=== PATIENT | male | born 1970 | race Caucasian/White ===

== ENCOUNTER 2022-09-05 20:48 | Emergency (ER) | payer MEDICAID, SELFPAY ==
[2022-09-05 20:50] VITALS: BP 160/112; PULSE 104; RESP 19; TEMP 36.9; O2SAT 95; BMI 28.0
--- NOTE | 2022-09-05 21:16 | US_ITS ---
EXAM: US DUPLEX RIGHT LOWER EXTREMITY VEINS CLINICAL INDICATION: undefined -- CALF FOR POSSIBLE DVT TECHNIQUE: Real-time duplex ultrasound scan of the right lower extremity veins integrating B-mode two-dimensional vascular structure, Doppler spectral analysis, color flow Doppler imaging and compression. This report was created using [employer] report generation technology. COMPARISON: None. FINDINGS: DEEP VEINS: No DVT in the visualized common femoral, femoral, proximal deep femoral, popliteal or calf veins. The veins demonstrate normal color flow , with normal phasic flow and/or augmentation response. Intravascular stent is present within the right common femoral vein, extending to the proximal superficial vein, and this portion of the venous system was not compressible due to the indwelling stent, which is patent. The remaining deep veins are normally compressible. SUPERFICIAL VEINS: Unremarkable. No thrombus in the visualized great saphenous vein. SOFT TISSUES: No acute findings. No popliteal cyst. US/Venous Duplex Imag/Limited/Uni IMPRESSION: Negative for DVT. Electronically Signed: Tripp Hull MD at 22:16 EDT ,
[2022-09-05 21:26] LABS: Absolute Lymphocyte Count 1.52 X10^3/uL (0.83-4.51); Absolute Neutrophil Count 3.8 X10^3/uL (2.0-7.7); Basophil# 0.08 X10^3/uL; Basophil% 1.3 % (0-1); Eosinophil# 0.17 X10^3/uL; Eosinophils% 2.7 % (0-5); Hematocrit 43.4 % (40-54); Hemoglobin 14.6 g/dL (13.0-16.5); Lymphocyte # 1.52 X10^3/ul (0.83-4.51); Lymphocyte % 24.2 % (19-41); Mean Corp Hgb Conc 33.6 g/dL (32-36); Mean Corpuscular Hgb 30.5 pg (27.0-32.0); Mean Corpuscular Volume 90.8 fL (80-94); Mean Platelet Vol. 10.6 fl (6.2-12.0); Monocyte# 0.65 X10^3/uL; Monocyte% 10.3 % (0-10); NRBC Flagged by Analyzer 0 % (0-5); Neutrophil # 3.83 X10^3/uL (2.7-7.7); Neutrophil % 60.9 % (47-70); Platelet Count 172 K/mm3 (150-450); RBC Distribution Width CV 14.1 % (11.6-14.6); RBC Distribution Width SD 47.1 fl (35.1-43.9); Red Blood Count 4.78 M/mm3 (4.6-6.2); White Blood Count 6.3 K/mm3 (4.4-11.0)
[2022-09-05 21:42] LABS: Anion Gap 1 (5-15); BUN 12 mg/dL (7-18); BUN/Creat Ratio 9.7 RATIO (10-20); Calcium,Total 9.4 mg/dL (8.5-10.1); Chloride 109 mmol/L (98-107); Creatinine, Serum 1.24 mg/dL (0.70-1.30); EST Glomerular Filtration Rate 65 mL/min (>60); Est Glom Filt Rate - Afr Amer 78 mL/min (>60); Glucose 129 mg/dL (74-106); Potassium 3.5 mmol/L (3.5-5.1); Sodium Level 138 mmol/L (136-145)
--- NOTE | 2022-09-05 23:09 | ED.VIS.LOWEX ---
HPI History of Present Illness Chief Complaint: Lower Extremity Injury Informant: patient, spouse/S.O. and PCP Narrative Narrative: I directly discussed the case twice with the patient's physician, Dr. Claros. I also discussed with the patient and his . Patient has a history of DVT and venous stenting. He is on Plavix but no other anticoagulation. He has noticed over the last month his legs been more swollen. Today it seems to be a little bit sore. Plan was to have him come in at least get started on Eliquis if we cannot get a DVT. However, we were able to get a DVT as he was here early enough. Patient does not have chest pain or trouble breathing. He has had no fevers or chills. No wounds. PFSH PFS Medical History DVT (deep venous thrombosis) Herniated disc Home Medications Plavix 09/05/22 [History Last Taken Unknown] mirtazapine 45 mg tablet 45 mg PO DAILY 09/05/22 [History Last Taken Unknown] paroxetine HCl 20 mg tablet 20 mg PO DAILY 09/05/22 [History Last Taken Unknown] Allergy/AdvReac Type Severity Reaction Status Date / Time No Known Allergies Allergy Verified 09/05/22 20:52 Social History Smoking Status: Smoker, status unknown ROS ROS ED Constitutional Constitutional ED: Denies chills, fever(s) or subjective ENT ENT ED: Denies rhinorrhea or sore throat Cardiovascular Cardiovascular: Denies chest pain, palpitations or racing heartbeat Respiratory/Chest Respiratory/Chest: Denies cough or dyspnea Gastrointestinal Gastrointestinal: Denies nausea or vomiting Genitourinary Genitourinary ED: Denies hematuria Musculoskeletal Musculoskeletal: Reports other Details: See history of present illness Integumentary Denies rash Neurologic Neurologic: Denies paresthesias or weakness Hematologic/Lymphatic Hematologic/Lymphatic: Denies lymphadenopathy Allergic/Immunologic Allergic/Immunologic ED: Denies urticaria EXAM Physical Exam Narrative Exam Narrative: Patient awake alert no acute distress sitting comfortably in the bed. HEENT shows moist mucous membranes Neck is supple Lungs are clear. Saturation are normal at 95% on room air showing no hypoxia. Heart is regular. Abdomen is benign. No swelling or tenderness. Extremities do show a bit of swelling of the right extremity that involve the calf and even a little bit of fullness in the thigh. Calf is about 1 to 1-1/2 cm larger on the right than the left. But it is not red or warm. There is no sign of infection. We took off his shoes and socks. He has excellent pulses of both post terrier tibial and dorsalis pedis pulse. Feet are warm. No rash. No indication of infection. Const Vital Signs: 09/05/22 20:50 Temperature 98.4 F Temperature Source Temporal Pulse Rate 104 H Respiratory Rate 19 H Blood Pressure 160/112 H Blood Pressure Mean 128 Pulse Ox 95 Oxygen Delivery Method Room Air MDM MDM MDM Narrative Medical decision making narrative: We did do blood work that showed normal CBC including his white count. Electrolytes showed no marked abnormalities. Glucose was minimally up at 129. Patient's ultrasound shows no sign of a DVT. I again discussed the case with Dr. Claros. His suspicion is that the patient likely is getting some stenosis at his stents but is not yet developed a DVT. He will see him in the office tomorrow. Patient will stay on his Plavix. We will not add Eliquis at this time. I discussed the plan with the patient and his and they are comfortable. Lab Data Labs: Laboratory Results - last 24 hr 09/05/22 09/05/22 21:16 21:16 WBC 6.3 RBC 4.78 Hgb 14.6 Hct 43.4 MCV 90.8 MCH 30.5 MCHC 33.6 RDW Std Deviation 47.1 H RDW Coeff of Mauri 14.1 Plt Count 172 MPV 10.6 Immature Gran % (Auto) 0.600 Neut % (Auto) 60.9 Lymph % (Auto) 24.2 [place] % (Auto) 10.3 H Eos % (Auto) 2.7 Baso % (Auto) 1.3 H Absolute Neuts (auto) 3.8 Absolute Lymphs (auto) 1.52 Nucleated RBC % 0 Sodium 138 Potassium 3.5 Chloride 109 H Carbon Dioxide 28.0 Anion Gap 1 L BUN 12 Creatinine 1.24 Estim Creat Clear Calc 68.10 Est GFR (MDRD) Af Amer 78 Est GFR (MDRD) Non-Af 65 BUN/Creatinine Ratio 9.7 L Glucose 129 H Calcium 9.4 Radiography Diagnostic Testing: Clinical Impression(s) from Imaging Studies Venous Duplex 09/05/22 21:16 IMPRESSION: Negative for DVT. Electronically Signed: Tripp Hull MD at 22:16 EDT , Discharge Plan Triage Chief Complaint: Lower Extremity Injury ED Provider: Gaurav Gonzalez Dx/Rx/DC Orders Clinical Impression: Right leg swelling Instructions: ED Lymphedema Prescriptions: No Action Plavix paroxetine HCl 20 mg tablet 20 mg PO DAILY Label Comments: take 1 tablet by mouth once daily mirtazapine 45 mg tablet 45 mg PO DAILY Label Comments: take 1 tablet by mouth at bedtime Primary Care Provider: Ulysses Alvarez Referrals: Ulysses Alvarez DO [Primary Care Provider] - Phil Claros MD [Med Staff - Active Staff] - 1 Day Disposition Disposition: Home, Self Care
== END 2022-09-05 23:21 | disposition home or self-care (01) ==
PROVIDERS: Emergency Provider Emergency Medicine; PCP Family Medicine; Visit Provider Emergency Medicine
DX: M79.89 Other specified soft tissue disorders (principal); F17.200 Nicotine dependence, unspecified, uncomplicated; Z86.718 Personal history of other venous thrombosis and embolism
CPT/HCPCS: 80048; 85025; 93971; 99283; A4216

== ENCOUNTER 2022-09-07 07:00 | Day surgery (SDC) | payer OTHER, MEDICAID, SELFPAY ==
[2022-09-07 07:26] VITALS: BMI 27.6
--- NOTE | 2022-09-07 10:06 | OP.PCM_ITS ---
Report of Operation Date of Procedure: 09/07/22 Pre-Operative Diagnosis: recurrent venous compression/stenosis Post-Operative Diagnosis: same Surgery/Procedure Performed:: Venogram unilateral extremity IVUS IVC, right common/external iliac, right common femoral and femoral veins Angioplasty/stent right external iliac vein Surgeon: Phil Claros Type of Anesthesia: Local and Sedation,Conscious Estimated Blood Loss (mL): 5 Description of Procedure: HPI: Patient is a 52-year-old male with past previous history of right lower extremity extensive DVT was treated with thrombectomy and stenting of iliac compression. He presents now with several weeks of increased edema, with negative DVT scan x2. I suspect he is got either in-stent stenosis or thrombus accumulation within the stent and nonvisualized segment. He is taken now for venogram with possible intervention. Description of procedure: Upon obtaining form consent and verification correct patient procedure site patient was taken to the [facility] where he was positioned prepped and draped in usual sterile fashion. Timeout was then performed conscious sedation administered with Versed and fentanyl. Skin was anesthetized over the right popliteal vein and the vessel accessed under ultrasound guidance in retrograde fashion with micropuncture needle and wire. This was then exchanged for micropuncture sheath through which injection right lower extremity venogram was performed which confirmed satisfactory position with no extravasation or dissection. A starter J-wire was then advanced through the mi cropuncture sheath and the micropuncture sheath exchanged out for a 9 Lao sheath. Through the 9 Lao sheath sequential subtraction venogram of the right lower extremity was performed and a glide advantage wire advanced into the ipsilateral iliac vein. A angled glide catheter was advanced to the proximal femoral vein and completion subtraction venogram of the common femoral vein through the ipsilateral iliac vein was performed. This revealed high-grade stenosis in the distal external iliac vein within a previously stented segment, at a location where likely the inguinal ligament with flexion was causing stent compression. In this location there was also an overlap site of one of the stent segments with the inferior aspect of the more proximal stent compressed. Using a glide catheter and glide advantage wire we navigated across the stenosis advancing our catheter into the inferior vena cava. The glide cath was then exchanged for a intravascular ultrasound probe which was advanced into the vena cava and recorded pullback performed of the inferior vena cava, right common and external leg veins, right common femoral vein, right femoral vein. This confirmed stenosis and stent compression with 81% stenosis/compression. The patient was in heparinized and allowed to circulate for 3 minutes. Given that this was some component likely intimal hyperplasia in addition to stent compression is felt that drug-coated balloon angioplasty may help prevent further restenosis. The lesion was first angioplastied with a 6 mm x 80 Admiral Impact paclitaxel stent inflated nominal for 3 minutes then deflated withdrawn. The lesion was then postdilated with an 8 x 40 angio sculpt along the entirety of the lesion. Finally a 12 x 40 Bard [place] balloon was advanced in position and inflated to nominal for 2 minutes sequentially across the entirety of the lesion and then deflated withdrawn. A [employer] Vena 12 x 100 was then advanced in position and avoid and postdilated with a 12 mm angioplasty balloon across the entirety of the stent. Repeat venography confirmed satisfactory stent expansion with brisk contrast transit across the stented segment and no filling of collaterals that had been imaged on the preintervention injections. Intravascular sound then readvanced and recorded pullback performed which confirmed satisfactory stent expansion and wall apposition across the entirety of the treated segment. See no further need for intervention the wire and catheter withdrawn and a 2-0 silk U stitch was placed in the skin this was secured as the sheath was withdrawn and manual pressure held for 15 minutes. At the conclusion of case patient was taken to the recovery room with dissipated discharge home. Radiograph interpretation: Inferior vena cava patent normal caliber with no compression. Right common iliac caliber with previously placed Wallstent fully expanded with no compression or in-stent stenosis. Right external iliac vein stent patent without compression or stenosis proximally, with the inferior segment at the inguinal ligament with an 81% stenosis. This was resolved postintervention. Right common femoral and proximal femoral vein stent patent with no compression or stenosis. Significant collaterals taking off just inferior to the femoral vein stent that filled more briskly than the outflow via the stent. These collaterals did not fill significantly postintervention. Patent right femoral vein with no stenosis or compression and brisk contrast transit. There is a dual femoral vein system at the midportion of the thigh. Popliteal vein patent with no compression or stenosis, brisk contrast transit.
== END 2022-09-07 12:58 | disposition home or self-care (01) ==
PROVIDERS: PCP Family Medicine; Referring Provider Surgery Trauma Surgery; Visit Provider Surgery Trauma Surgery
DX: I87.2 Venous insufficiency (chronic) (peripheral) (principal); R60.9 Edema, unspecified; I87.9 Disorder of vein, unspecified
CPT/HCPCS: 37239; 36005; 37238; 37252; 37253; 75820; 76937; 99152; 99153; C1725; C1753; C1769; C2623; J7040; Q9967; C1876

== ENCOUNTER → 2022-09-23 | Outpatient (CLI) | payer OTHER, SELFPAY ==
--- NOTE | 2022-09-23 09:02 | AAVD_ITS ---
Reason For Study: S/P Iliac vein stent Aorta Measurements IVC prox, 1.14 x 1.37 x 1.22 cm. IVC mid, 1.44 x 1.41 x 1.40 cm. IVC distal, 1.45 x 1.81 x 1.60 cm. Right CIV, stent, 0.91 x 0.95 x 1.00 cm. Left CIV, 0.59 x 0.78 x 0.65 cm. Normal phasic venous flow noted throughout the IVC. Normal phasic venous flow noted throughout the right CIV and EIV, venous stent noted. No apparent narrowing noted with color flow. Normal phasic venous flow noted throughout the left CIV. Procedure Aorta IVC Iliac vasculature or bypass grafts [id number]. Exam performed in department. VL/Abd Aortic/IVC Duplex scan Interpretation Summary Patent inferior vena cava and left iliac veins with normal flow pattern. Patent right common and external iliac vein stents with no stenosis, normal dana w pattern. Ordering Physician: Lolis Tarango Referring Physician: Ulysses Alvarez Performed By: Ericka Darden RVT
== END | disposition home or self-care (01) ==
PROVIDERS: PCP Family Medicine; Referring Provider Physician Assistant; Visit Provider Physician Assistant
DX: I87.9 Disorder of vein, unspecified (principal); Z86.718 Personal history of other venous thrombosis and embolism
CPT/HCPCS: 93978

== ENCOUNTER → 2023-03-08 | Outpatient (CLI) | payer OTHER, MEDICAID, SELFPAY ==
--- NOTE | 2023-03-08 08:52 | AAVD_ITS ---
Reason For Study: S/P iliac vein stent Inferior Vena Cava Proximal inferior vena cava measures 1.65 x 1.83 cm. in the cross-sectional axis. Proximal inferior vena cava measures 1.60 cm. in the longitudinal axis. Mid inferior vena cava measures 1.22 x 1.19 cm. in the cross-sectional axis. Mid inferior vena cava measures 1.05 cm. in the longitudinal axis. Distal inferior vena cava measures 1.19 x 1.71 cm. in the cross-sectional axis. Distal inferior vena cava measures 1.28 cm. in the longitudinal axis. The inferior vena cava has spontaneous, phasic flow throughout. Left Common Iliac Vein Left common iliac vein measures 0.62 x 0.80 cm. in the cross-sectional axis. Left common iliac vein measures 0.61 cm. in the longitudinal axis. The left common iliac vein has spontaneous, phasic flow throughout. Right Common Iliac Vein Right common iliac vein measures 0.93 x 0.96 cm. in the cross-sectional axis. Right common iliac vein measures 0.95 cm. in the longitudinal axis. The right common iliac vein has spontaneous, phasic flow throughout. Stent noted in Right CIV and EIV. Normal venous flow noted in the right EIV. Procedure Aorta IVC Iliac vasculature or bypass grafts [id number]. Exam performed in department. VL/Abd Aortic/IVC Duplex scan Interpretation Summary Inferior vena cava and bilateral iliac veins patent with normal venous flow pat tern Ordering Physician: Lolis Bustos Referring Physician: Ulysses Alvarez Performed By: Ericka Darden RVT
== END | disposition home or self-care (01) ==
PROVIDERS: PCP Family Medicine; Referring Provider Physician Assistant; Visit Provider Physician Assistant
DX: I87.9 Disorder of vein, unspecified (principal); Z86.718 Personal history of other venous thrombosis and embolism
CPT/HCPCS: 93978

== ENCOUNTER → 2023-09-08 | Outpatient (CLI) | payer OTHER, SELFPAY ==
--- NOTE | 2023-09-08 08:55 | AAVD_ITS ---
Reason For Study: S/P iliac vein stent, recurrent iliac vein stenosis Inferior Vena Cava Proximal inferior vena cava measures 1.32 x 1.73 cm. in the cross-sectional axis. Proximal inferior vena cava measures 1.55 cm. in the longitudinal axis. Mid inferior vena cava measures 1.13 x 2.00 cm. in the cross-sectional axis. Mid inferior vena cava measures 1.15 cm. in the longitudinal axis. Distal inferior vena cava measures 1.18 x 1.80 cm. in the cross-sectional axis. Distal inferior vena cava measures 1.21 cm. in the longitudinal axis. The inferior vena cava has spontaneous, phasic flow throughout. Left Common Iliac Vein Left common iliac vein measures 0.86 x 1.18 cm. in the cross-sectional axis. Left common iliac vein measures 0.84 cm. in the longitudinal axis. The left common iliac vein has spontaneous, phasic flow throughout. Right Common Iliac Vein Right common iliac vein measures 1.03 x 1.14 cm. in the cross-sectional axis. Right common iliac vein measures 1.10 cm. in the longitudinal axis. The right common iliac vein has spontaneous, phasic flow throughout. Procedure Aorta IVC Iliac vasculature or bypass grafts [id number]. Exam performed in department. VL/Abd Aortic/IVC Duplex scan Interpretation Summary Patent IVC and bilateral iliac veins with normal flow pattern. Patent right iliac vein stent Ordering Physician: Lolis Bustos Referring Physician: Ulysses Alvarez Performed By: Ericka Darden RVT
== END | disposition home or self-care (01) ==
PROVIDERS: PCP Family Medicine; Referring Provider Physician Assistant; Visit Provider Physician Assistant
DX: I87.9 Disorder of vein, unspecified (principal); Z86.718 Personal history of other venous thrombosis and embolism
CPT/HCPCS: 93978

== ENCOUNTER → 2023-09-14 | Outpatient (CLI) | payer MEDICARE, SELFPAY ==
[2023-09-14 11:03] LABS: Amphetamine Urine VISTA NEGATIVE (<1000 ng/mL); Barbiturate Urine VISTA NEGATIVE (< 200 ng/mL); Benzodiazepine Urine VISTA NEGATIVE (< 200 ng/mL); Cocaine Urine VISTA NEGATIVE (< 300 ng/mL); Ecstacy Urine VISTA NEGATIVE (< 500 ng/mL); Methadone Urine VISTA NEGATIVE (< 300 ng/mL); PCP Urine VISTA NEGATIVE (< 25 ng/mL); THC Urine VISTA POSITIVE (< 50 ng/mL); Vista UDS pH Range 5
== END | disposition home or self-care (01) ==
LOC: LAB 10:20
PROVIDERS: PCP Family Medicine; Referring Provider Anesthesiology Pain Medicine; Visit Provider Anesthesiology Pain Medicine
DX: F11.20 Opioid dependence, uncomplicated (principal)
CPT/HCPCS: 80307

== ENCOUNTER → 2023-09-27 | Outpatient (CLI) | payer OTHER, SELFPAY ==
--- NOTE | 2023-09-27 09:47 | VDLE_ITS ---
Reason For Study: Right leg swelling RIGHT LEFT CIV has normal venous phasic venous flow. CFV is compressible, spontaneous, phasic, EIV prox-mid has normal phasic venous flow. competent, and demonstrates normal EIV distal, turbulent venous flow noted. augmentation. CFV, turbulent venous flow noted. FV normal venous flow. FV prox, turbulent venous flow noted. FA prox, 83.8 cm/sec. Stents noted in the CIV, EIV, CFV and FV prox. Remaining FV is comressible. POP V is compressible, spontaneous, phasic, competent and demonstrates normal augmentation. T/P Trunk is compressible. PTV is compressible. RT PerV is compressible. EIA distal, 103.4 cm/sec. Abnormal low resistive flow. TAR KETTLE RUNNER, 118 cm/sec. Abnormal low resistive flow. FA prox, 83.8 cm/sec. Abnormal low resistive flow. FA mid, 65 cm/sec. Normal triphasic flow. Vanessa, 43.1 cm/sec. Procedure This is a venous duplex using B-mode, color flow and spectral Doppler. Exam performed in department. A preliminary report was called and/or faxed to Lolis CHAPMAN. VL/Venous Duplex US, Unilateral Interpretation Summary Deep veins of the right lower extremity are patent and compressible segmentally . There is no evidence of right lower extremity deep vein thrombosis. The right great sapheno us vein appears patent and compressible segmentally. Turbulent high velocity flow visualized in the right proximal femoral vein, com mon femoral vein, external iliac vein with patent stents noted. Low resistance flow in the right external iliac artery, common femoral artery, proximal SFA. Flow pattern suggests arterio-venous fistula. Ordering Physician: Lolis Bustos Referring Physician: Ulysses Alvarez Performed By: Ericka Darden RVT
== END | disposition home or self-care (01) ==
PROVIDERS: PCP Family Medicine; Referring Provider Physician Assistant; Visit Provider Physician Assistant
DX: M79.89 Other specified soft tissue disorders (principal); M79.604 Pain in right leg; Z86.718 Personal history of other venous thrombosis and embolism; Z48.812 Encounter for surgical aftercare following surgery on the circulatory system; I87.9 Disorder of vein, unspecified
CPT/HCPCS: 93971

== ENCOUNTER → 2023-10-04 | Outpatient (CLI) | payer OTHER, SELFPAY ==
--- NOTE | 2023-10-04 07:45 | CT_ITS ---
STUDY: CTA OF THE ABDOMINAL AORTA AND BILATERAL LOWER EXTREMITIES REASON FOR EXAM: Male, 53 years old. Acquired fistula, femoral-popliteal vessels. Prior stenting. RADIATION DOSAGE (If Supplied By Facility): CTDIvol = ( 6.53 ) mGy, DLP = ( 1138.80 ) mGycm TECHNIQUE: Axial CT angiography multi-detector data acquisition was obtained from the dome of the liver to the level of the ankles following intravenous administration of IV 100mL Isovue-[id number]. Axial images and MIP images were reconstructed from the axial data set. Post-processing of the angiographic images was performed, with multiplanar reformation and 3D reconstruction. Individualized dose optimization techniques were used for this CT. TECHNICAL QUALITY: Good COMPARISON: None. Descriptors of Narrowing: None (0%) Mild (< 50%) Moderate (50-70%) Severe (70-90%) Subtotal/Total Occlusion (90-100%) Non-Evaluable (technically non-diagnostic FINDINGS: Vascular stent is seen in the right common and external iliac veins. A stent is also seen in the mid thigh. 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 Abdominal aorta: Scattered calcified plaques. No evidence of aneurysm. Celiac and superior mesenteric arteries: No demonstrated narrowing. Inferior mesenteric artery: No demonstrated narrowing. Right renal artery(arteries): No demonstrated narrowing. Left renal artery(arteries): No demonstrated narrowing. Right common iliac artery: No demonstrated narrowing. Right external iliac artery: No demonstrated narrowing. Right internal iliac artery: No demonstrated narrowing. Left common iliac artery: No demonstrated narrowing. Left external iliac artery: No demonstrated narrowing. Left internal iliac artery: No demonstrated narrowing. RIGHT LOWER EXTREMITY Right common femoral artery: No demonstrated narrowing. Right profundus femoris: No demonstrated narrowing. Right superficial femoral: No demonstrated narrowing. Right popliteal artery: No demonstrated narrowing. Right tibioperoneal trunk: No demonstrated narrowing. Right anterior tibial artery: No demonstrated narrowing. Right posterior tibial artery: No demonstrated narrowing. Right peroneal artery: No demonstrated narrowing. LEFT LOWER EXTREMITY Left common femoral artery: No demonstrated narrowing. Left profundus femoris: No demonstrated narrowing. Left superficial femoral: No demonstrated narrowing. Left popliteal artery: No demonstrated narrowing. Left tibioperoneal trunk: No demonstrated narrowing. Left anterior tibial artery: No demonstrated narrowing. Left posterior tibial artery: No demonstrated narrowing. Left peroneal artery: No demonstrated narrowing. CT/CTA Abd w/Runoff W/WO Contrast IMPRESSION: Vascular stent seen in the right common and external iliac vein as well as in the midportion of the superficial right femoral vein with a fistulous connection to the midportion of the right superficial femoral artery. Electronically Signed: Dmitry Tim MD at 12:16 EDT ,
== END | disposition home or self-care (01) ==
PROVIDERS: PCP Family Medicine; Referring Provider Surgery Trauma Surgery; Visit Provider Surgery Trauma Surgery
DX: I73.9 Peripheral vascular disease, unspecified (principal); I77.0 Arteriovenous fistula, acquired
CPT/HCPCS: 75635; Q9967

== ENCOUNTER 2023-11-29 05:12 | Inpatient (IN) | payer OTHER, SELFPAY ==
--- NOTE | 2023-11-24 09:00 | EKG12_ITS ---
Test Reason : PREOP Blood Pressure : / mmHG Vent. Rate : 058 BPM Atrial Rate : 058 BPM P-R Int : 162 ms QRS Dur : 084 ms QT Int : 364 ms P-R-T Axes : 049 -12 056 degrees QTc Int : 357 ms Sinus bradycardia CAN NOT RULE OUT Septal infarct , age undetermined Abnormal ECG Confirmed by Tomas Josue ([id number]), book editor KATIANA ZHOU ([id number]) on 11/27/2023 10:36:01 AM Referred By: ALE Confirmed By:Tomas Josue
[2023-11-24 10:02] LABS: Hemoglobin 15.3 g/dL (13.0-16.5); Mean Corpuscular Hgb 30.4 pg (27.0-32.0); Mean Corpuscular Volume 89.5 fL (80-94); Mean Platelet Vol. 10.3 fl (6.2-12.0); Platelet Count 193 K/mm3 (150-450); RBC Distribution Width SD 45.6 fl (35.1-43.9); Red Blood Count 5.03 M/mm3 (4.6-6.2); White Blood Count 6.5 K/mm3 (4.4-11.0)
[2023-11-24 10:27] LABS: Anion Gap 1 (5-15); BUN 10 mg/dL (7-18); BUN/Creat Ratio 8.8 RATIO (10-20); Calcium,Total 9.3 mg/dL (8.5-10.1); Chloride 107 mmol/L (98-107); Creatinine, Serum 1.13 mg/dL (0.70-1.30); EST Glomerular Filtration Rate 72 mL/min (>60); Est Glom Filt Rate - Afr Amer 87 mL/min (>60); Glucose 88 mg/dL (74-106); Potassium 3.9 mmol/L (3.5-5.1); Sodium Level 138 mmol/L (136-145)
[2023-11-29] VITALS (24 sets, daily range): BP systolic 94–147; BP diastolic 61–102; PULSE 44–95; RESP 8–18; TEMP 36.2–36.6; O2SAT 93–100; BMI 25.6; BMI 26.0
[2023-11-29] MEDS: Lactated Ringers 1,000 ML 15 ML IV (06:09)
[2023-11-29] MEDS: 0.9% Normal Saline (1000mL) 1,000 ML 15 ML IV (07:00)
--- NOTE | 2023-11-29 07:08 | PRE.ANES_ITS ---
ASA Classification* ASA Classification ASA Classification: 3 Assessment & Plan Anesthesia* Anesthesia Assessment Anesthesia Assessment: Discussed sedation and/or anesthesia options, risks, benefits, and alternatives with patient/parents/legal guardian/POA. Questions invited. The patient/parents/legal guardian/POA seems to understand and agrees to proceed with anesthesia plan. Reviewed the physical assessment, medical history, allergy history and patient home medications list prior to surgery/procedure/anesthetic and documented any changes. Performed airway and anesthesia risk assessments. Anesthesia Type Anesthesia Type: MAC (see written pre anesthesia record for full assessment) Anesthesia Focused Assessment* Temperature: 97.7 F Pulse Rate: 62 Blood Pressure: 133/86 Respiratory Rate: 18 Pulse Ox: 100 Airway Assessment Mouth opens: >3 cm Mallampati Score: II Focused Labs Anesthesia Preop lab: CBC WBC 6.5 K/mm3 (4.4-11.0) 11/24/23 09:21 RBC 5.03 M/mm3 (4.6-6.2) 11/24/23 09:21 Hgb 15.3 g/dL (13.0-16.5) 11/24/23 09:21 Hct 45.0 % (40-54) 11/24/23 09:21 Plt Count 193 K/mm3 (150-450) 11/24/23 09:21 CHEMISTRY Potassium 3.9 mmol/L (3.5-5.1) 11/24/23 09:21 Sodium 138 mmol/L (136-145) 11/24/23 09:21 BUN 10 mg/dL (7-18) 11/24/23 09:21 Creatinine 1.13 mg/dL (0.70-1.30) 11/24/23 09:21 Glucose 88 mg/dL (74-106) 11/24/23 09:21 COAG Pre-Assessment Diagnosis/Proposed Procedure Planned Operative Procedure(s): REPAIR RIGHT FEMORAL FISTULA Anesthesia History 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 When Was Last Pacemaker Check QUESTION #4 FULL TEXT: You/Your Family Experience fever (hyperthermia) with Anesthesia Last Oral Intake Last Oral intake: Last Oral Intake NPO since 17:00 11/29/23 06:02 Meds taken in AM with sips of No 11/29/23 06:02 water? Meds patient instructed to take am of surgery PONV PONV - cracking machine operator: PONV - cracking machine operator Female No 11/23/23 13:49 HX of Motion Sickness No 11/23/23 13:49 HX of N/V After Surgery No 11/23/23 13:49 Non-Smoker No 11/23/23 13:49 Duration of Surgery greater Yes 11/23/23 13:49 than 60 minutes Number of Risk Factors 1 11/23/23 13:49 PONV Score Low Risk 11/23/23 13:49 Height & Weight Height & Weight: Anesthesia: Height & Weight Height 5 ft 9 in 11/29/23 06:02 Weight: 78.7 kg 11/29/23 06:02 Body Mass Index (BMI) 25.6 11/29/23 06:02 Respiratory Assessment Respiratory Assessment - cracking machine operator: Respiratory Tract Infection Hx - cracking machine operator Hx Respiratory Tract Infection No 11/23/23 13:49 STOP Sleep Apnea STOP Sleep Apnea - cracking machine operator: STOP Sleep Apnea - cracking machine operator Hx Hypertension No 11/23/23 13:49 Hx Sleep Apnea No 11/23/23 13:49 CPAP BIPAP Do you snore loudly (louder No 11/23/23 13:49 than talking or can be heard Do you often feel tired/ No 11/23/23 13:49 fatigued/ sleepy during daytime? Has anyone observed you stop No 11/23/23 13:49 breathing during sleep? STOP Results Negative 11/23/23 13:49 QUESTION #5 FULL TEXT : Do you snore loudly (louder than talking or can be heard through closed doors)? 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 Specify any problems Hx of Preganancy in last 3 N/A 11/23/23 13:49 Months Nurse Filling Out Transfusion DSCHRIBER 11/23/23 13:49 & Questions: Date: 11/23/23 11/23/23 13:49 Time: 13:50 11/23/23 13:49 Patient unable to answer at this time (ie. confused, unrespo /Reproduction History /Reproductive History - cracking machine operator: /Reproductive Hx- cracking machine operator Hx Now No 11/23/23 13:49 Gestational Age (in weeks): EDC: Hx Hx Para Hx Section SAB No 11/23/23 13:49 Active Medications Active Medications: Current Medications Generic Name Dose Route Start Last Admin Trade Name Freq PRN Reason Stop Dose Admin Cefazolin Sodium 2 gm/ Sodium 110 mls @ 150 mls/hr 11/29/23 07:30 Chloride IV 11/29/23 08:13 PREOP ONE Lactated Ringer's 1,000 mls @ 15 mls/hr 11/29/23 06:15 11/29/23 06:09 IV 15 mls/hr .Q48H ECTOR Administration PFSH Medical History Loss of hearing Wears glasses Wears dentures Marijuana use Alcohol use Arthritis Restless legs Back pain Injury of back Asthma Smoker History of edema DVT (deep venous thrombosis) Home Medications ?Medication ?Instructions ?Recorded ?Last Taken ?Type albuterol sulfate 90 mcg/actuation 1 inh inhalation DAILY PRN PRN 08/30/22 11/29/23 History aerosol inhaler (Ventolin HFA) shortness of breath or wheezing rivaroxaban 2.5 mg tablet (Xarelto) 2.5 mg PO BID PVD #180 tabs 09/15/22 11/27/23 20:00 Rx mometasone-formoterol HFA 100 2 puff inhalation BID COPD 11/23/23 11/28/23 History mcg-5 mcg/actuation aerosol inhaler (Dulera) clopidogrel 75 mg tablet (Plavix) 75 mg PO QHS PVD 11/29/23 11/28/23 History Allergy/AdvReac Type Severity Reaction Status Date / Time No Known Allergies Allergy Verified 11/23/23 13:46 Surgical History Status post angioplasty with stent Social History Smoking Status: Current every day smoker tobacco type: cigarettes alcohol intake: current alcohol intake frequency: holidays/special occasions only substance use type: other details: THC Edibles at HS Review of Systems (Anesthesia) ROS Narrative System reviewed and no additional complaints, except as documented.
--- NOTE | 2023-11-29 07:24 | PCM.HP.BLA ---
History and Physical Allergies No Known Allergies Allergy (Verified 11/15/23 13:37) Medications ?Medication ?Instructions ?Recorded ?Confirmed ?Type albuterol sulfate 2.5 mg/3 mL 2.5 mg continuous nebulization 08/30/22 11/15/23 History (0.083 %) solution for nebulization DAILY albuterol sulfate 90 mcg/actuation 1 inh inhalation DAILY 08/30/22 11/15/23 History aerosol inhaler (Ventolin HFA) rivaroxaban 2.5 mg tablet (Xarelto) 2.5 mg PO BID #180 tabs 09/15/22 11/15/23 Rx clopidogrel 75 mg tablet (Plavix) 75 mg PO DAILY #30 tabs 01/24/23 11/15/23 Rx oxycodone 5 mg tablet 5 mg PO Q8H PRN pain 7 days #21 11/15/23 11/15/23 Rx tabs PFSH Medical History Herniated disc DVT (deep venous thrombosis) Surgical History Status post angioplasty with stent Social History Smoking Status: Current every day smoker alcohol intake: current alcohol intake frequency: holidays/special occasions only substance use type: other details: THC Edibles at HS HPI HPI HPI: BRANDON CHAKRABORTY, is a 53 M who presents to the office today for follow up of prior DVT, thrombectomy with venous stenting initially performed at [facility]. About 1 year ago underwent venogram to assess new edema which revealed in-stent stenosis and an additional stent was placed. He returned several months later with new RLE edema/pain and duplex revealed that stents were satisfactory but an AV fistula was identified in the mid thigh. CTA revealed what appeared to be fistula between mid SFA branch and the femoral vein. His symptoms continue to worsen, with increasing pain/aching/tightness. ROS General General: Yes weight change and weakness; No fatigue, colon cancer or breast cancer HEENT HEENT: No difficulty swallowing, eye injury, eye surgery, swollen glands or hoarseness Endo Endocrine: Yes Hair loss; No thyroid disease, diabetes mellitus, thyroid cancer, heat intolerance or cold intolerance Skin Skin: No rash or changing moles Musc Musculoskeletal: Yes back problems, arthritis and joint pain; No rheumatoid arthritis or gout Cardio Cardiovascular: Yes palpitations and shortness of breat with exertion; No murmur, pacemaker, heart disease, atrial fibrillation, high blood pressure, heart attack, heart stent or chest pain Psych Psychiatric: No depression, anxiety or hearing voices Resp Respiratory: Yes shortness of breath, No sleep apnea, No cough, No COPD, Yes asthma, No emphysema and No wheezing Gastro Gastrointestinal: No abdominal pain, No nausea or vomiting, No diarrhea, No constipation, No blood in stool, No acid reflux, No hemorrhoids, No ulcers, No gallbladder problem and No black,tarry stools Luis Hematologic: Yes blood thinners, No blood disorders, No bleeding, No anemia and No blood clots Neuro Neurologic: No system reviewed and no additional complaints, except as documented, No as per HPI, No abnormal gait, No abnormal hearing, No abnormal movements, No abnormal speech, No behavioral changes, Yes burning sensations, No confusion, No convulsions, No disequilibrium, No dizziness, No localized weakness, No frequent falls, No headache(s), No lack of coordination, No loss of vision, No memory loss, Yes numbness, No other visual disturbances, No radicular pain, Yes restless legs, No sensory deficit, No syncope, Yes tingling, No tremor(s), Yes weakness and No other Exam Const General: cooperative, healthy appearing, comfortable, no acute distress and well developed Nutritional Appearance: well nourished Orientation: alert, awake and oriented x3 [facility] Head: normocephalic and atraumatic Ears: hearing grossly normal bilaterally Nose: external nose normal Eyes General: appearance normal, both eyes and all related structures EOM: EOM intact bilaterally Neck Neck: normal visual inspection, full ROM, no lymphadenopathy and trachea midline Thyroid: thyroid normal Lymphatic: no lymphadenopathy noted Resp Effort & Inspection: normal respiratory effort, able to speak in complete sentences, symmetric chest movement, no audible wheezes, not labored, no stridor and no use of accessory muscles Cardio Rate: regular rate Rhythm: regular rhythm Skin General: no rashes or lesions noted and no erythema Wounds: no wounds Neuro Cranial Nerves: CN's II-XI intact bilaterally and EOM intact bilaterally Speech: speech normal Gait: normal gait Motor: strength 5/5 throughout Sensory Exam: no sensory deficits noted Psych Appearance: grossly normal and well kempt Mental Status: mental status grossly normal Mood: congruent mood Speech and Movement: speech and movement normal Thought Content: normal Judgment: judgment good Coding Level of Care Code Off vis,est,level 2 Diagnoses Acquired AV fistula, 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
[2023-11-29] MEDS: Cefazolin 2 GM in 0.9% Normal Saline (100mL Bag) 100 ML IV (07:45)
[2023-11-29] MEDS: Heparin Injection (Vial) 5,000 UNIT/ML VIAL 5000 UNIT (08:13)
[2023-11-29] MEDS: Bupivacaine 0.25% 30 ML Vial (08:56)
[2023-11-29] MEDS: Lidocaine 1% (20 ml mdv) 20 ML Vial (08:56)
--- NOTE | 2023-11-29 09:12 | PCM.OPRPT ---
Report of Operation Date of Procedure: 11/29/23 Pre-Operative Diagnosis: iatrogenic right SFA-femoral vein fistula Post-Operative Diagnosis: same Surgery/Procedure Performed:: repair right femoral AV fistula Surgeon: Phil Claros Type of Anesthesia: General Estimated Blood Loss (mL): 3 Description of Procedure: HPI: Patient is a 53-year-old male with increasing right lower extremity pain, heaviness, tightness. He has history of prior deep venous thrombosis with venography and thrombectomy and stenting of the right common, external iliacs as well as common femoral and proximal femoral vein with multiple venous access sites. Prior imaging has not revealed any new venous abnormalities however most recent duplex revealed an arteriovenous fistula in the mid femoral vein to mid SFA inferior to the prior stenting. CT scan confirmed this and showed what appeared to be a fistula from a branch of the SFA into the femoral vein. He is taken now for open surgical repair of the fistula. Description of procedure: Upon obtaining informed consent and verification correct patient procedure site patient taken to the operating where he was placed under general anesthesia. He was then positioned prepped and draped in you sterile fashion time was performed. Ultrasound used to evaluate the superficial femoral artery and the femoral vein and the location of the fistula identified. Longitudinal incision was made centered at the fistula location overlying the femoral vessels. Bovie electrocautery was dissect down through subcutaneous tissue to level the fascia and self-retaining retractors put in position. Further dissection was carried down to the muscular fascia which was then incised and retracted moved deeper into the wound. Combination of Bovie and blunt dissection used dissect between the muscle bellies down to the neurovascular bundle until the femoral vessels were visualized. This point sharp dissection was used to dissect the superficial femoral artery and femoral vein veins individually working cephalad and assessing the vessels with Doppler to determine fistula location. Once we reached the site of abnormal flow pattern in the artery and vein we identified the area of fistula connection which did appear to be from a branch of the superficial femoral artery to the anterior surface of the femoral vein. We dissected the arterial branch proximal and distal and occluded the vessel which we reverted the flow characteristics normal arterial and venous flow patterns. A right angle was then used to bluntly dissect the posterior aspect of the arterial branch and was then ligated the proximal and distal extent with silk ties. Assessment of the SFA and femoral vein revealed normal arterial and venous flow pattern respectively. The incision was then inspected for hemostasis and then closed with 2-0 Vicryl, 3-0 Vicryl, 4 Monocryl and Dermabond for the skin. Patient was then awakened anesthesia taken recovery anticipated observation intensive care unit for hemodynamic and vascular monitoring.
--- NOTE | 2023-11-29 09:34 | PCM.POST.ANE ---
Anesthesia: Postop Eval I Current Vital Signs Temperature: 97.7 F Pulse Rate: 84 Blood Pressure: 144/93 Respiratory Rate: 16 Pulse Ox: 98 Oxygen Delivery Method: Room Air Assessment Airway patent: Yes Spontaneous unlabored respirations: Yes Mental status: Awake and Calm nausea: No Vomiting: No Anesthesia Complication: No Fluid Hydration Crystalloid volume administer (ml): 600 Total IV fluid infused: 600 Progress Note Anesthesia document: Postop Eval 1 completed: Yes
--- NOTE | 2023-11-29 09:48 | POSTOPAN2_ITS ---
Anesthesia Postop Eval I Sum Postop Eval Completion status Anesthesia document: Postop Eval 1 completed: Yes Anesthesia Postop Eval I Summary Anesthesia Postop Eval I Summary: Anesthesia Postop Eval I: Assessment Summary Airway patent Yes 11/29/23 09:35 TRAFFIC MAINTENANCE OFFICER.[email or web address] Spontaneous unlabored Yes 11/29/23 09:35 TRAFFIC MAINTENANCE OFFICER.JARVIS respirations Mental status Awake,Calm 11/29/23 09:35 TRAFFIC MAINTENANCE OFFICER.JARVIS nausea No 11/29/23 09:35 TRAFFIC MAINTENANCE OFFICER.JARVIS Vomiting No 11/29/23 09:35 TRAFFIC MAINTENANCE OFFICER.JARVIS Anesthesia Postop Eval I: Fluid Summary Crystalloid volume administer 600 11/29/23 09:35 TRAFFIC MAINTENANCE OFFICER.JARVIS (ml) Colloids volume administered ( ml) Blood Product volume administered (ml) Total IV fluid infused 600 11/29/23 09:35 TRAFFIC MAINTENANCE OFFICER.JARVIS Anesthesia Postop Eval I: Summary Notes Anesthesia Complication No 11/29/23 09:35 TRAFFIC MAINTENANCE OFFICERESTELA Anesthesia Complication Comment: Post-operative progress note Anesthesia: Postop Eval II Evaluation Mental status: Awake Pain Level: 0 nausea: No Vomiting: No
--- NOTE | 2023-11-29 09:48 | PCM.POSTANE2 ---
Anesthesia Postop Eval I Sum Postop Eval Completion status Anesthesia document: Postop Eval 1 completed: Yes Anesthesia Postop Eval I Summary Anesthesia Postop Eval I Summary: Anesthesia Postop Eval I: Assessment Summary Airway patent Yes 11/29/23 09:35 PERINATAL NURSE.[email or web address] Spontaneous unlabored Yes 11/29/23 09:35 PERINATAL NURSE.JARVIS respirations Mental status Awake,Calm 11/29/23 09:35 PERINATAL NURSE.JARVIS nausea No 11/29/23 09:35 PERINATAL NURSE.JARVIS Vomiting No 11/29/23 09:35 PERINATAL NURSE.JARVIS Anesthesia Postop Eval I: Fluid Summary Crystalloid volume administer 600 11/29/23 09:35 PERINATAL NURSE.JARVIS (ml) Colloids volume administered ( ml) Blood Product volume administered (ml) Total IV fluid infused 600 11/29/23 09:35 PERINATAL NURSE.JARVIS Anesthesia Postop Eval I: Summary Notes Anesthesia Complication No 11/29/23 09:35 PERINATAL NURSEESTELA Anesthesia Complication Comment: Post-operative progress note Anesthesia: Postop Eval II Evaluation Mental status: Awake Pain Level: 0 nausea: No Vomiting: No
[2023-11-29] MEDS: 0.45% Normal Saline 1,000 ML 100 ML IV ×2 (10:57→21:33)
[2023-11-29] MEDS: Rivaroxaban 2.5 MG Tablet PO ×2 (12:06→21:32)
[2023-11-29] MEDS: Ondansetron 4 MG/2 ML Vial IV ×2 (13:40→21:32)
[2023-11-29] MEDS: proCHLORPERazine 10 MG/2 ML Vial 5 MG IV (17:58)
[2023-11-29] MEDS: Acetaminophen 500 MG Tablet 1000 MG PO (21:32)
[2023-11-29] MEDS: 0.9% Saline Lock 10 ML Syringe IV (21:32)
[2023-11-29] MEDS: Clopidogrel Bisulfate 75 MG Tablet PO (21:32)
[2023-11-30] VITALS (18 sets, daily range): BP systolic 92–139; BP diastolic 58–108; PULSE 52–84; RESP 14–18; TEMP 36.4–36.6; O2SAT 93–100; BMI 26.2
[2023-11-30] MEDS: Acetaminophen 500 MG Tablet 1000 MG PO (06:02)
[2023-11-30] MEDS: 0.45% Normal Saline 1,000 ML 100 ML IV (06:08)
[2023-11-30] MEDS: Enoxaparin 40 MG/0.4 ML Syringe SC (09:17)
[2023-11-30] MEDS: Rivaroxaban 2.5 MG Tablet PO (09:17)
[2023-11-30] MEDS: oxyCODONE 5 MG Tablet PO (09:51)
[2023-11-30] MEDS: Budesonide Respules 0.5 MG/2 ML AMPUL.NEB. INHALATION (12:29)
[2023-11-30] MEDS: Albuterol 2.5 MG/3 ML VIAL.NEB. INHALATION (12:29)
--- NOTE | 2023-11-30 13:00 | PCM.DC.SUM ---
Providers Date of Admission: 11/29/23 Primary Care Physician: Dr. 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 Code(s): I77.0 - Arteriovenous fistula, acquired Medications at Discharge Home Medications albuterol sulfate 90 mcg/actuation aerosol inhaler (Ventolin HFA) 1 inh inhalation DAILY PRN PRN shortness of breath or wheezing 08/30/22 rivaroxaban 2.5 mg tablet (Xarelto) 2.5 mg PO BID PVD #180 tabs 09/15/22 mometasone-formoterol HFA 100 mcg-5 mcg/actuation aerosol inhaler (Dulera) 2 puff inhalation BID COPD 11/23/23 clopidogrel 75 mg tablet (Plavix) 75 mg PO QHS PVD 11/29/23 hydrocodone-acetaminophen 5-325mg 5mg-325mg 0.5 - 1 tab PO BID PRN pain 11/29/23 oxycodone 5 mg tablet 5 mg PO Q8H PRN pain 3 days #9 tabs 11/30/23 Hospital Course Operations - (open repair right femoral fistula ) Summary of Care Provided Hospital Course: Mr. Beckham underwent elective repair of right femoral fistula 11/29/2023 which he tolerated well. He was admitted post op to the ICU for hemodynamic and vascular monitoring. Over night he did well, with some mild nausea but no emesis. On POD # 1 he continue to be hemodynamically stable, pain well controlled, and no concern for bleeding. He was progressively ambulated, diet advanced, and he was voiding without difficulty. He was discharged to home 11/30/2023. Physical Exam Const alert, oriented x3, no apparent distress and healthy appearing General Appearance: cooperative; Negative for combative or lethargic Orientation / Consciousness: awake Exam Limitations: no limitations HEENT Head and Scalp: normocephalic and atraumatic Eyes EOMs intact bilaterally General Eye: normal appearance of both eyes Neck full ROM, no lymphadenopathy and thyroid normal General: trachea midline; Negative for lymphadenopathy or tenderness Thyroid: thyroid normal Resp normal respiratory effort and no use of accessory muscles Effort and Inspection: Negative for labored, stridor or audible wheezes Cardio regular rate, regular rhythm and no murmurs Back/Spine Cervical Spine: cervical ROM normal Extremity full ROM, normal capillary refill and no clubbing, cyanosis or edema Skin no rashes or lesions noted and no wounds Neuro oriented x3, CN's II-XII intact bilaterally, no focal motor deficits and no sensory deficits noted Psych thought process normal, cooperative, affect normal, speech normal and activity/motor behavior normal Weight / BMI Weight Weight: 177 lb 7.554 oz Body Mass Index (BMI) 26.2 ABG / Lab / Microbiology Data 11/24/23 09:21 11/24/23 09:21 D/C Instructions Discharge Diet: No restrictions May shower in (days): 1 Lifting Restrictions: do not lift > 20 lbs for 3 weeks Additional Activity Instructions: do not submerge incision for 3 weeks Call your doctor if your incision/area has: Sudden Increased Bleeding, Increased Pain/ Swelling, Increased Redness and Foul Smelling Discharge Call your doctor if you observe: Fever of 101 or Higher Remove Dressing in: 1 day Meaningful Use Info Meaningful Use Meaningful Use Diagnoses (Choose all that apply): None applicable Ischemic Stroke Statin Dosing Therapy Reference: STATIN DOSE THERAPY REFERENCE: * Patients > 75 years receive moderate or high dose statin therapy. * Patients 75 years or YOUNGER should receive HIGH intensity statin dose unless contraindicated. You will be required to document reason for non-treatment if statin daily dose does not meet guidelines. HIGH DOSE STATIN THERAPY DAILY Atorvastatin > than or = to 40 mg Rosuvastatin > than or = to 20 mg Amlodipine + Atorvastatin > than or = to 2.5/40 mg Ezetimibe + Simvastatin 10/80 mg Simvastatin 80mg Discharge Plan Admission Admit Date/Time: 11/29/23 05:12 Attending Provider: Phil Claros Primary Care Provider: Ulysses Alvarez Discharge Orders/Prescriptions Prescriptions: New oxycodone 5 mg tablet 5 mg PO Q8H PRN (Reason: pain) 3 Days Qty: 9 0RF Continued albuterol sulfate [Ventolin HFA] 90 mcg/actuation HFA aerosol inhaler 1 inh inhalation DAILY PRN PRN (Reason: shortness of breath or wheezing) Patient Comments: inhale 2 puffs by mouth and INTO THE LUNGS every 6 hours if needed for wheezing Xarelto 2.5 mg tablet 2.5 mg PO BID Qty: 180 3RF Dulera 100-5 mcg/actuation HFA aerosol inhaler 2 puff INHALATION BID clopidogrel [Plavix] 75 mg tablet 75 mg PO QHS hydrocodone-acetaminophen 5-325 mg tablet 0.5 - 1 tab PO BID PRN (Reason: pain) Referrals / Follow Up: Ulysses Alvarez DO [Primary Care Provider] - Disposition Disposition (needs filled in before D/C Order can be placed): Home, Self Care
== END 2023-11-30 13:15 | disposition home or self-care (01) | DRG 254 ==
LOC: ACINP 07:41 → ICU 09:02
PROVIDERS: Admitting Provider Surgery Trauma Surgery; PCP Family Medicine; Referring Provider Surgery Trauma Surgery; Visit Provider Surgery Trauma Surgery
PROC: 04QK0ZZ Repair Right Femoral Artery, Open Approach (ICD-10-PCS; CPT 37607; principal; 2023-11-29 07:15)
DX: I77.0 Arteriovenous fistula, acquired (principal); F17.200 Nicotine dependence, unspecified, uncomplicated; Z79.01 Long term (current) use of anticoagulants; Z79.02 Long term (current) use of antithrombotics/antiplatelets; Z79.899 Other long term (current) drug therapy; Z86.718 Personal history of other venous thrombosis and embolism
CPT/HCPCS: 36415; 80048; 85027; 86850; 86900; 86901; 93005; 94640; 94668; 99252; A4648; J7030; J7120; A4216; G0463; J2405

== ENCOUNTER → 2024-09-17 | Outpatient (CLI) | payer OTHER, SELFPAY ==
--- NOTE | 2024-09-17 08:46 | AAVD_ITS ---
Reason For Study Reason For Study: HX Rt CIV/CFV Stent Inferior Vena Cava Proximal inferior vena cava measures 1.54 x 1.64 cm. in the cross-sectional axis. Proximal inferior vena cava measures 1.30 cm. in the longitudinal axis. Mid inferior vena cava measures 1.16 x 1.30 cm. in the cross-sectional axis. Mid inferior vena cava measures 1.15 cm. in the longitudinal axis. Distal inferior vena cava measures 1.29 x 1.67 cm. in the cross-sectional axis. Distal inferior vena cava measures 1.34 cm. in the longitudinal axis. The inferior vena cava has spontaneous, phasic flow throughout. Left Common Iliac Vein Left common iliac vein measures 1.05 x 1.23 cm. in the cross-sectional axis. Left common iliac vein measures 0.92 cm. in the longitudinal axis. The left common iliac vein has spontaneous, phasic flow throughout. Right Common Iliac Vein Right common iliac vein measures 1.26 x 1.26 cm. in the cross-sectional axis. Right common iliac vein measures 1.32 cm. in the longitudinal axis. The right common iliac vein has spontaneous, phasic flow throughout. The right common femoral vein has spontaneous, phasic flow throughout. Stent Noted thoughout CIV and CFV. Procedure Aorta IVC Iliac vasculature or bypass grafts [id number]. The exam was diagnostic. Exam performed in department. VL/Abd Aortic/IVC Duplex scan Interpretation Summary Patent inferior vena cava, bilateral iliac vein, and right femoral vein stents with normal venous flow pattern. No observed fistula flow pattern. Ordering Physician: Lolis Bustos Referring Physician: Ulysses Alvarez Performed By: Isidro Art, RVT
== END | disposition home or self-care (01) ==
LOC: CVS 08:45
PROVIDERS: PCP Family Medicine; Referring Provider Physician Assistant; Visit Provider Physician Assistant
DX: Z48.812 Encounter for surgical aftercare following surgery on the circulatory system (principal); Z86.718 Personal history of other venous thrombosis and embolism; I87.9 Disorder of vein, unspecified
CPT/HCPCS: 93978

== ENCOUNTER → 2025-01-06 | Outpatient (CLI) | payer OTHER, SELFPAY ==
--- NOTE | 2025-01-06 14:39 | VDLE_ITS ---
Reason For Study Reason For Study: Pain RIGHT LEFT GSV is normal. CFV is compressible, spontaneous, phasic, competent, CFV is compressible, spontaneous, phasic, competent and demonstrates normal augmentation. and demonstrates normal augmentation. FV is compressible, spontaneous, phasic, competent and demonstrates normal augmentation. POP V is compressible, spontaneous, phasic, competent and demonstrates normal augmentation. T/P Trunk is compressible. PTV is compressible. RT PerV is compressible. Procedure This is a venous duplex using B-mode, color flow and spectral Doppler. Exam performed in department. A preliminary report was called and/or faxed to [facility]. VL/Venous Duplex US, Unilateral Interpretation Summary Deep veins of the right lower extremity are patent and compressible segmentally . There is no evidence of right lower extremity deep vein thrombosis. The right great saphenous vein appears patent a nd compressible segmentally. Ordering Physician: Lolis Bustos Referring Physician: Lolis Bustos Performed By: Dotty Carvajal RVT
--- NOTE | 2025-01-06 14:39 | VDLE_ITS ---
Reason For Study Reason For Study: Pain RIGHT LEFT GSV is normal. CFV is compressible, spontaneous, phasic, competent, CFV is compressible, spontaneous, phasic, competent and demonstrates normal augmentation. and demonstrates normal augmentation. FV is compressible, spontaneous, phasic, competent and demonstrates normal augmentation. POP V is compressible, spontaneous, phasic, competent and demonstrates normal augmentation. T/P Trunk is compressible. PTV is compressible. RT PerV is compressible. Procedure This is a venous duplex using B-mode, color flow and spectral Doppler. Exam performed in department. A preliminary report was called and/or faxed to [facility]. VL/Venous Duplex US, Unilateral Interpretation Summary Deep veins of the right lower extremity are patent and compressible segmentally . There is no evidence of right lower extremity deep vein thrombosis. The right great saphenous vein appears patent a nd compressible segmentally. Ordering Physician: Lolis Bustos Referring Physician: Lolis Bustos Performed By: Dotty Carvajal RVT
== END | disposition home or self-care (01) ==
LOC: CVS 14:37
PROVIDERS: PCP Family Medicine; Referring Provider Physician Assistant; Visit Provider Physician Assistant
DX: M79.604 Pain in right leg (principal); M79.89 Other specified soft tissue disorders; Z86.718 Personal history of other venous thrombosis and embolism; I87.9 Disorder of vein, unspecified
CPT/HCPCS: 93971